=== PATIENT | male | born 1990 | race Caucasian/White ===

== ENCOUNTER 2020-12-19 23:35 | Inpatient (IN) | payer SELFPAY ==
[~2020-12-19] VITALS: Ht 170.2 cm; Wt 78.0 kg
[2020-12-19 23:51] VITALS: BP 114/79
[2020-12-20] MEDS ORDERED: PANTOPRAZOLE 40 MG in SODIUM CHLORIDE FLUSH 250 ML IV ONE (00:10)
[2020-12-20] MEDS ORDERED: NACL 0.9% 1,000 ML IV ONE (00:10)
[2020-12-20] MEDS ORDERED: PANTOPRAZOLE 40 MG INJ VIAL ONE ×2 (00:22→00:41)
--- NOTE | 2020-12-20 00:42 | NUR ---
Patient taken to CT
[2020-12-20 00:45] LABS: BASOPHILS # (AUTO) 0.1 K/uL (0.00-0.22); BASOPHILS % (AUTO) 1.2 % (0.0-2.0); EOSINOPHILS % (AUTO) 0.3 % (0.0-4.0); HEMATOCRIT 30.4 % (36-52); HEMOGLOBIN 10.5 g/dL (12.0-18.0); LYMPHOCYTES # (AUTO) 1.5 K/uL (2.0-11.5); LYMPHOCYTES % (AUTO) 25.9 % (20.5-51.1); MEAN CORPUSCULAR HEMOGLOBIN 35 pg (27-31); MEAN CORPUSCULAR HGB CONC 34 g/dL (33-37); MEAN CORPUSCULAR VOLUME 102.2 fL (80-94); MONOCYTES # (AUTO) 0.5 K/uL (0.8-1.0); MONOCYTES % (AUTO) 9.5 % (1.7-9.3); NEUTROPHILS # (AUTO) 3.6 K/uL (1.8-7.7); NEUTROPHILS % (AUTO) 63.1 % (42.2-75.2); PLATELET COUNT (AUTO) 126 K/uL (140-450); RED BLOOD CELL COUNT(AUTO) 2.97 MIL/uL (4.20-6.10); WHITE BLOOD COUNT (AUTO) 5.6 K/uL (4.8-10.8)
--- NOTE | 2020-12-20 00:59 | NUR ---
Patient back in
[2020-12-20 01:00] LABS: ALBUMIN 2.3 g/dL (3.4-5.0); ANION GAP 11.1 (8-16); CARBON DIOXIDE 26.3 mmol/L (21-32); CREATININE 0.9 mg/dL (0.6-1.3); POTASSIUM 3.4 mmol/L (3.5-5.1); TOTAL BILIRUBIN 5.7 mg/dL (0.0-1.0)
--- NOTE | 2020-12-20 01:30 | NUR ---
OSMAN wheatley. Gave to Lab.
[2020-12-20] MEDS ORDERED: MULTIVITAMIN-12 10 ML, THIAMINE 100 MG, FOLIC ACID 1 MG, MAGNESIUM SULFATE 50% 2,000 MG... IV SCH ×5 (02:05)
[2020-12-20] MEDS ORDERED: LORazepam 2 MG/ML VIAL IVP PRN ×2 (02:05→12:55)
--- NOTE | 2020-12-20 02:17 | NUR ---
Dr. Do at patient's bedside. Discussed lab result and poor prognosis if no changes in lifestyle made.
[2020-12-20 02:18] LABS: APPEARANCE,URINE CLEAR (CLEAR); BILIRUBIN,URINE 2+ (NEGATIVE); BLOOD, URINE NEGATIVE (NEGATIVE); COLOR,URINE YELLOW (YELLOW); LEUKOCYTE ESTERASE ,URINE NEGATIVE (NEGATIVE); NITRITE, URINE NEGATIVE (NEGATIVE); UGLUCOSE TRACE (NEGATIVE)
[2020-12-20] MEDS ORDERED: VANCOMYCIN 1,000 MG in DEXTROSE 5% 250 ML IV ONE (02:20)
[2020-12-20] MEDS ORDERED: LEVOFLOXACIN 500 MG/D5W PREMIX 100 ML IV ONE (02:20)
[2020-12-20] MEDS ORDERED: MORPHINE SULFATE 4 MG/ML SYR IVP ONE (02:35)
[2020-12-20] MEDS ORDERED: VANCOMYCIN 1,000 MG VIAL ONE (02:36)
[2020-12-20 02:54] LABS: RBC,URINE 0-5 /HPF (0-5); WBC,URINE 0-5 /HPF (0-5)
[2020-12-20 02:55] LABS: YEAST,URINE Rare /HPF (None Seen)
[2020-12-20] MEDS ORDERED: diphenhydrAMINE 50 MG/ML VIAL IVP ONE (03:25)
[2020-12-20] MEDS ORDERED: LORazepam 2 MG/ML VIAL IVP ONE (03:25)
[2020-12-20] MEDS ORDERED: diphenhydrAMINE 50 MG/ML VIAL ONE (04:31)
--- NOTE | 2020-12-20 04:43 | NUR ---
RECEIVED REPORT FROM HANK GAMEZ FROM THE ED. WILL WAIT FOR PT TO ARRIVE TO UNIT.
[2020-12-20 05:00] VITALS: BP 122/86
--- NOTE | 2020-12-20 05:00 | NUR ---
PT ARRIVED TO UNIT VIA GURNEY TRANSPORTED BY RADHA AND RN. PT IS AMBULATORY, STEADY GAIT. A&OX4. ON RA WITH BREATHING UNLABORED O2 SAT IS 97%. SKIN IS WARM, DRY, AND INTACT. DENIES PAIN. IV IS IN THE RIGHT AC 20 GAUGE. COVID POSITIVE WITH DROPLET PRECAUTIONS. SEIZURE PRECAUTIONS IN PLACE FOR ALCOHOL WITHDRAWAL. PT IS NPO. PT IS STABLE. PLAN OF CARE DISCUSSED WITH PILATES COORDINATOR.
--- NOTE | 2020-12-20 05:12 | NUR ---
Pt report given to Pippa MCKINNEY. Admitted to Rm 115. Transfer of care at this time.
[2020-12-20] MEDS ORDERED: MAG SULF 2000 MG/WATER PREMIX 50 ML IV ONE (05:49)
[2020-12-20] MEDS ORDERED: THIAMINE 200 MG/2 ML VIAL ONE (05:56)
[2020-12-20] MEDS ORDERED: FOLIC ACID 5 MG/ML SYR ONE (05:59)
[2020-12-20] MEDS ORDERED: MULTIVITAMIN-12 10 ML VIAL IV ONE (06:00)
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
--- NOTE | 2020-12-20 07:10 | NUR ---
RECEIVED REPORT FROM NIGHT NURSE FOR CONTINUITY OF CARE. PT IS AAOX4, PT IS SITTING IN BED. NO SIGNS OF DISTRESS IN BED. PT ON ROOM AIR. PT HAS RAC 20G, SKIN INTACT. SEIZURE PRECAUTIONS IN PLACE, DROPLET PRECAUTION. SAFETY MEASURES IN PLACE, WILL CONTINUE TO MONITOR.
--- NOTE | 2020-12-20 07:10 | NUR ---
ENDORSED PT TO DAY SHIFT NURSE FOR CONTINUITY OF CARE. PT IS STABLE AT THIS TIME. PLAN OF CARE DISCUSSED.
--- NOTE | 2020-12-20 07:16 | NUR ---
PATIENT HAS BEEN SCREENED AND CATEGORIZED MODERATE NUTRITION RISK. PATIENT WILL BE SEEN WITHIN 3-5 DAYS OF ADMISSION. 12/23/20-12/25/20 VÍCTOR GOMEZ MS, RDN
[2020-12-20 08:00] VITALS: BP 119/65
[2020-12-20] MEDS ORDERED: AZITHROMYCIN 250 MG in DEXTROSE 5% 250 ML IV SCH (09:00)
[2020-12-20] MEDS: MULTIVITAMIN-12 10 ML, THIAMINE 100 MG, FOLIC ACID 1 MG, MAGNESIUM SULFATE 50% 2,000 MG... IV SCH ×5 (09:09)
[2020-12-20] MEDS: chlordiazePOXIDE 25 MG CAP PO SCH ×3 (09:10→16:57)
--- NOTE | 2020-12-20 09:28 | NUR ---
ADMINISTERED SCHEDULED MEDICATION, MEDICATION EDUCATION PROVIDED. PT TOLERATED WELL. PT HAS RH 20G INFUSING ANTIBIOTICS. PT IS STABLE, WILL CONTINUE TO MONITOR.
--- NOTE | 2020-12-20 11:10 | NUR ---
ROUNDING ON PT, PT IS STABLE, PT RESTING IN BED. NO SIGNS OF DISTRESS NOTED. MAINTENANCE TEAM LEADER IN PLACE, WILL CONTINUE TO MONITOR.
--- NOTE | 2020-12-20 11:29 | NUR ---
RECEIVED VERBAL ORDER FOR PT TO BE ON FULL LIQUID DIET AND ADVANCE DIET TOLERATED. WILL INPUT ORDER AND CARRY IT OUT.
[2020-12-20 12:00] VITALS: BP 113/75
[2020-12-20 12:17] LABS: PROTHROMBIN TIME 11.9 secs (10.8-13.4)
[2020-12-20] MEDS ORDERED: POTASSIUM CHLORIDE 10 MEQ TABER PO PRN (12:50)
[2020-12-20] MEDS ORDERED: MAG SULF 2000 MG/WATER PREMIX 50 ML IV PRN (12:50)
[2020-12-20] MEDS ORDERED: LEVOFLOXACIN 500 MG/D5W PREMIX 100 ML IV SCH (12:55)
[2020-12-20] MEDS ORDERED: FLUCONAZOLE 200 MG/NS PREMIX 100 ML IV SCH (13:00)
[2020-12-20] MEDS ORDERED: ZOLPIDEM 5 MG TAB PO PRN (13:05)
[2020-12-20] MEDS ORDERED: HYDROcodone/APAP 5/325 MG 1 TAB TAB PO PRN (13:05)
[2020-12-20] MEDS ORDERED: LORazepam 2 MG/ML VIAL IM/IVP PRN (13:05)
[2020-12-20] MEDS ORDERED: ACETAMINOPHEN 325 MG TAB PO PRN (13:05)
[2020-12-20] MEDS ORDERED: ONDANSETRON 4 MG/2 ML VIAL IM/IVP PRN (13:05)
[2020-12-20] MEDS ORDERED: MORPHINE SULFATE 2 MG/ML SYR IVP PRN (13:05)
[2020-12-20] MEDS ORDERED: DOCUSATE SODIUM 100 MG GELCAP PO PRN (13:05)
[2020-12-20] MEDS: NACL 0.9% 1,000 ML IV SCH (13:27)
[2020-12-20 13:37] LABS: CHOL/HDL RATIO 18.6 (1-4.5); MAGNESIUM 1.7 mg/dL (1.8-2.4); PHOSPHORUS 2.7 mg/dL (2.5-4.9); THYROID STIMULATING HORMONE 0.6 uIU/mL (0.34-3.74)
--- NOTE | 2020-12-20 13:37 | NUR ---
ADMINISTERED SCHEDULED MEDICATION, MEDICATION EDUCATION PROVIDED. PT VERBALIZED UNDERSTANDING. OBTAINED COVID PCR SWAB. PT TOLERATED WELL. MAINTENANCE INSTRUCTOR IN PLACE, WILL CONTINUE TO MONITOR.
--- NOTE | 2020-12-20 14:49 | NUR ---
ADMINISTERED SCHEDULED MEDICATION, MEDICATION EDUCATION PROVIDED. PT TOLERATED WELL. CARPENTER REPAIR IN PLACE, WILL CONTINUE TO MONITOR.
[2020-12-20] MEDS ORDERED: ALBUTEROL HFA MDI 90 MCG/ACTUATION 8 GM INH PRN (15:35)
[2020-12-20 16:00] VITALS: BP 121/80
[2020-12-20] MEDS: FERROUS SULFATE 325 MG TABEC PO SCH (16:56)
--- NOTE | 2020-12-20 17:01 | NUR ---
ADMINISTERED SCHEDULED MEDICATION, K-DUR FOR POTASSIUM 3.4. MEDICATION EDUCATION PROVIDED. PT VERBALIZED UNDERSTANDING. PT TOLERATED WELL. PT IS STABLE. BOAT PATCHER PLASTIC IN PLACE, WILL CONTINUE TO MONITOR.
[2020-12-20 17:33] LABS: BARBITURATE, URINE NEGATIVE ng/ml (NEG <=200); BENZODIAZEPINE, URINE POSITIVE ng/mL (NEG <=200); COCAINE, URINE POSITIVE ng/mL (NEG <=300)
[2020-12-20 17:34] LABS: CANNABINOID, URINE NEGATIVE ng/mL (NEG <=50); OPIATE, URINE POSITIVE ng/mL (NEG <=2000); PHENCYCLIDINE SCREEN,URINE NEGATIVE ng/mL (NEG <=25)
--- NOTE | 2020-12-20 19:13 | NUR ---
ENDORSE PT TO NIGHT NURSE FOR CONTINUITY OF CARE
--- NOTE | 2020-12-20 19:14 | NUR ---
RECEIVED REPORT FROM DAY SHIFT NURSE. PT IN BED RESTING. PT AAOX4 AND ABLE TO MAKE NEEDS KNOWN. RESPIRATIONS EVEN AND UNLABORED TO ROOM AIR, NO S/SX OF DISTRESS NOTED. ABDOMEN IS SOFT AND NON-TENDER. SKIN IS WARM, DRY, AND INTACT. PT WITH IV ACCESS ON R AC G20 AND R HAND G20 PATENT AND INTACT, IVF INFUSING WELL. PT DENIES ANY PAIN OR DISCOMFORT AT THIS TIME. NO REQUESTS MADE. SAFETY MEASURES IN PLACE, CALL LIGHT WITHIN REACH, WILL CONTINUE TO MONITOR.
[2020-12-20 20:00] VITALS: BP 125/74
[2020-12-20] MEDS: LACTULOSE 20 GM/30 ML UDC PO SCH (20:25)
[2020-12-20] MEDS: PANTOPRAZOLE 40 MG TABEC PO SCH (20:25)
[2020-12-20] MEDS: ZINC SULF 220 MG CAP PO SCH (20:25)
--- NOTE | 2020-12-20 20:25 | NUR ---
DR DELGADO AT BEDSIDE. INSTRUCTED TO STOP ALL ANTIBIOTICS. ORDERS CARRIED OUT. WILL CONTINUE TO MONITOR.
--- NOTE | 2020-12-20 20:30 | NUR ---
VS STABLE. SCHEDULED MEDS GIVEN ORDERED. PT DENIES ANY PAIN OR DISCOMFORT. NO NAUSEA OR VOMITING VERBALIZED. PT KEPT COMFORTABLE. CALL LIGHT WITHIN REACH. FECAL OCCULT BLOOD SAMPLE SENT TO LAB.
--- NOTE | 2020-12-20 22:28 | NUR ---
ROUNDS MADE. PT IN BED WATCHING TV. PT DENIES ANY SOB. DENIES ANY PAIN OR DISCOMFORT WELL. IVF INFUSING WELL. CALL LIGHT WITHIN REACH. WILL CONTINUE TO MONITOR.
--- NOTE | 2020-12-20 22:58 | NUR ---
PT VERBALIZED HAVING SOB. PT ENCOURAGED TO REST AND DO DEEP BREATHING. HOB ELEVATED. O2 SAT 95%. TEMP CHECK 100.4 PRN TYLENOL GIVEN. PT ALSO VERBALIZED HAVING DIFFICULTY SLEEPING, PRN AMBIEN GIVEN ORDERED. PT KEPT COMFORTABLE. CALL LIGHT WITHIN REACH. WILL CONTINUE TO MONITOR.
[2020-12-21] VITALS: BP 113/74
--- NOTE | 2020-12-21 00:23 | NUR ---
VS STABLE. PT RESTING IN BED. PT AFEBRILE. NO S/SX OF RESPIRATORY DISTRESS NOTED. CALL LIGHT WITHIN REACH. WILL CONTINUE TO MONITOR.
--- NOTE | 2020-12-21 02:11 | NUR ---
ASLEEP WITH HOB ELEVATED. VISIBLE CHEST RISE AND FALL NOTED. PT NOT IN DISTRESS. PT KEPT COMFORTABLE. WILL CONTINUE TO MONITOR.
[2020-12-21 04:00] VITALS: BP 130/87
--- NOTE | 2020-12-21 04:26 | NUR ---
VS STABLE. PT RESTING COMFORTABLY. DENIES ANY PAIN OR DISCOMFORT. NO REQUESTS MADE. CALL LIGHT WITHIN REACH, WILL CONTINUE TO MONITOR.
[2020-12-21] MEDS: NACL 0.9% 1,000 ML IV SCH (05:43)
[2020-12-21 07:10] LABS: BASOPHILS % (AUTO) 1.1 % (0.0-2.0); EOSINOPHILS % (AUTO) 0.6 % (0.0-4.0); HEMATOCRIT 31.6 % (36-52); HEMOGLOBIN 10.9 g/dL (12.0-18.0); LYMPHOCYTES # (AUTO) 1.2 K/uL (2.0-11.5); LYMPHOCYTES % (AUTO) 36.7 % (20.5-51.1); MEAN CORPUSCULAR HEMOGLOBIN 36 pg (27-31); MEAN CORPUSCULAR HGB CONC 34 g/dL (33-37); MONOCYTES # (AUTO) 0.3 K/uL (0.8-1.0); MONOCYTES % (AUTO) 8.8 % (1.7-9.3); NEUTROPHILS # (AUTO) 1.8 K/uL (1.8-7.7); NEUTROPHILS % (AUTO) 52.8 % (42.2-75.2); PLATELET COUNT (AUTO) 117 K/uL (140-450); RED BLOOD CELL COUNT(AUTO) 3.07 MIL/uL (4.20-6.10); WHITE BLOOD COUNT (AUTO) 3.4 K/uL (4.8-10.8)
[2020-12-21 07:23] LABS: ALBUMIN 2.2 g/dL (3.4-5.0); ANION GAP 7.9 (8-16); CARBON DIOXIDE 28.8 mmol/L (21-32); CREATININE 0.9 mg/dL (0.6-1.3); PHOSPHORUS 2.4 mg/dL (2.5-4.9); POTASSIUM 3.7 mmol/L (3.5-5.1); TOTAL BILIRUBIN 5.7 mg/dL (0.0-1.0)
--- NOTE | 2020-12-21 07:25 | NUR ---
ENDORSED TO DAY SHIFT NURSE FOR CONTINUITY OF CARE
--- NOTE | 2020-12-21 07:30 | NUR ---
RECEIVED REPORT FROM PROCESS MANAGER. PT IN BED, AOX4, ABLE TO MAKE NEEDS KNOWN. NO C/O PAIN, RESPIRATIONS ARE EVEN AND UNLABORED ON ROOM AIR. ABDOMEN IS SOFT AND NON-TENDER. SKIN IS WARM, DRY, AND INTACT. WITH IV ACCESS ON RIGHT AC G20 AND RIGHT HAND G20 PATENT AND INTACT. RUNNING NS AT 60CC/HR. CALL LIGHT WITHIN REACH, WILL CONTINUE TO MONITOR.
[2020-12-21 08:00] VITALS: BP 126/87
[2020-12-21] MEDS: FERROUS SULFATE 325 MG TABEC PO SCH (08:00)
[2020-12-21 08:07] LABS: FOLIC ACID 4.4 ng/mL (>3.0); T4 (THYROXINE) 3.2 ug/dL (4.5-12.0)
[2020-12-21] MEDS: PANTOPRAZOLE 40 MG TABEC PO SCH (09:00)
[2020-12-21] MEDS ORDERED: VITAMIN D 400 IU TAB PO SCH (09:00)
[2020-12-21] MEDS ORDERED: MULTIVITAMIN 1 TAB PO SCH (09:00)
[2020-12-21] MEDS: chlordiazePOXIDE 25 MG CAP PO SCH (09:00)
[2020-12-21] MEDS ORDERED: THIAMINE 100 MG TAB PO SCH (09:00)
[2020-12-21] MEDS ORDERED: ASCORBIC ACID 500 MG TAB PO SCH (09:00)
[2020-12-21] MEDS: ZINC SULF 220 MG CAP PO SCH (09:00)
[2020-12-21] MEDS: LACTULOSE 20 GM/30 ML UDC PO SCH (09:00)
[2020-12-21] MEDS: MULTIVITAMIN-12 10 ML, THIAMINE 100 MG, FOLIC ACID 1 MG, MAGNESIUM SULFATE 50% 2,000 MG... IV SCH ×5 (09:00)
[2020-12-21] MEDS ORDERED: FOLIC ACID 1 MG TAB PO SCH (09:00)
[2020-12-21] MEDS ORDERED: VITD400 PO (09:03)
[2020-12-21] MEDS ORDERED: THIA-34 PO (09:03)
[2020-12-21] MEDS ORDERED: ZINC220C29 PO (09:03)
[2020-12-21] MEDS ORDERED: DEXA6TAB1 PO (09:03)
[2020-12-21] MEDS ORDERED: VITC500 PO (09:03)
[2020-12-21] MEDS ORDERED: PANT40EC56 PO (09:03)
[2020-12-21] MEDS ORDERED: FOLI1TAB90 PO (09:03)
--- NOTE | 2020-12-21 09:20 | NUR ---
DUE MORNING MEDS GIVEN. TOLERATED WELL
--- NOTE | 2020-12-21 11:00 | NUR ---
DISCHARGE INSTRUCTIONS AND PRESCRIPTION GIVEN. VERBALIZED UNDERSTANDING
--- NOTE | 2020-12-21 11:30 | NUR ---
REMOVED ID BAND. REMOVED IV, LUMEN INTACT. ASSISTED TO FRONT LOBBY. STABLE UPON DISCHARGE
[2020-12-21] MEDS ORDERED: LIB25 PO (12:17)
== END 2020-12-21 11:45 | disposition home or self-care (01) | DRG 377 ==
LOC: MED 23:35 → MTU 12-20 02:08
DX: K29.71 Gastritis, unspecified, with bleeding (principal); G92 Toxic encephalopathy; J12.82 Pneumonia due to coronavirus disease 2019; U07.1 COVID-19; J69.0 Pneumonitis due to inhalation of food and vomit; E43 Unspecified severe protein-calorie malnutrition; E87.1 Hypo-osmolality and hyponatremia; J98.11 Atelectasis; I24.8 Other forms of acute ischemic heart disease; G93.1 Anoxic brain damage, not elsewhere classified; K70.9 Alcoholic liver disease, unspecified; K70.10 Alcoholic hepatitis without ascites; F10.129 Alcohol abuse with intoxication, unspecified; D53.9 Nutritional anemia, unspecified; E87.6 Hypokalemia; B37.9 Candidiasis, unspecified; D72.819 Decreased white blood cell count, unspecified; E11.9 Type 2 diabetes mellitus without complications; I10 Essential (primary) hypertension; Z68.26 Body mass index [BMI] 26.0-26.9, adult
CPT/HCPCS: 36415; 71045; 80053; 80305; 81001; 82140; 82150; 82272; 82607; 82728; 82746; 83036; 83540; 83605; 83615; 83690; 83735; 83880; 84100; 84134; 84436; 84443; 84484; 85025; 85045; 85379; 85610; 85651; 86140; 86886; 86900; 86901; 87040; 87081; 99291; A9153; C9113; G0482; J0456; J0696; J1200; J1450; J1956; J2060; J2270; J3370; J3411; J3475; J3490; J7030; J7060; J7120; U0003

== ENCOUNTER 2021-01-14 09:30 | Emergency (ER) | payer MEDICAID ==
[~2021-01-14 09:30] MED LIST: DEXA6TAB1 PO; FOLI1TAB90 PO; LIB25 PO; PANT40EC56 PO; THIA-34 PO; VITC500 PO; VITD400 PO; ZINC220C29 PO
--- NOTE | 2021-01-14 09:50 | NUR ---
PATIENT LEFT WITHOUT BEING TRIAGED. NO FURTHER CARE PROVIDED FOR PATIENT.
== END 2021-01-14 09:50 | disposition left against medical advice (07) ==
LOC: MED 09:30
DX: Z53.21 Procedure and treatment not carried out due to patient leaving prior to being seen by health care provider (principal)

== ENCOUNTER 2021-01-16 13:00 | Emergency (ER) | payer MEDICAID ==
[~2021-01-16] VITALS: Ht 167.6 cm; Wt 74.8 kg
[2021-01-16 13:02] VITALS: BP 119/63
--- NOTE | 2021-01-16 13:09 | NUR ---
PT AMBULATED TO BED 9.
--- NOTE | 2021-01-16 13:18 | NUR ---
LEFT WITHOUT BEING SEEN BY ERMD
== END 2021-01-16 13:18 | disposition left against medical advice (07) ==
LOC: MED 13:00
DX: F41.9 Anxiety disorder, unspecified (principal); R42 Dizziness and giddiness; R51.9 Headache, unspecified; Z53.21 Procedure and treatment not carried out due to patient leaving prior to being seen by health care provider

== ENCOUNTER 2021-01-30 08:58 | Emergency (ER) | payer MEDICAID ==
[~2021-01-30] VITALS: Ht 167.6 cm; Wt 74.8 kg
[2021-01-30 09:00] VITALS: BP 124/81
[2021-01-30] MEDS ORDERED: KETOROLAC 60 MG/2 ML VIAL IM ONE (09:20)
[2021-01-30] MEDS ORDERED: ONDANSETRON 4 MG ODT PO ONE (09:20)
[2021-01-30] MEDS ORDERED: IBUP-2213 PO (09:24)
[2021-01-30] MEDS ORDERED: ONDA8TAB87 PO (09:24)
[2021-01-30 09:46] VITALS: BP 124/81
== END 2021-01-30 09:46 | disposition home or self-care (01) ==
LOC: MED 08:58
DX: R07.9 Chest pain, unspecified (principal); R11.2 Nausea with vomiting, unspecified; Z79.899 Other long term (current) drug therapy
CPT/HCPCS: 81002; 81025; 93005; 96372; 99283; J1885; Q0162